=== PATIENT | male | born 1990 | race Caucasian/White ===

== ENCOUNTER 2023-08-12 23:00 | Emergency (ER) | payer BC ==
[~2023-08-12] VITALS: Ht 185.4 cm; Wt 81.6 kg
[2023-08-12 23:03] VITALS: BP_SYST 149; PULSE 74; RESP 18; TEMP 99; O2SAT 97
[2023-08-12] MEDS: FAMOTIDINE 20 MG TABLET PO ONE (23:28)
[2023-08-12] MEDS: DIPHENHYDRAMINE HCL 25 MG CAPSULE PO ONE (23:30)
[2023-08-12] MEDS ORDERED: TRIA1CAP88 PO (23:37)
[2023-08-12 23:40] VITALS: BP_SYST 145; PULSE 72; RESP 18; TEMP 98.9; O2SAT 97
== END 2023-08-12 23:40 | disposition home or self-care (01) ==
LOC: SED 23:00
DX: T78.3XXA Angioneurotic edema, initial encounter (principal); I10 Essential (primary) hypertension; E78.5 Hyperlipidemia, unspecified; Z88.2 Allergy status to sulfonamides; Z79.899 Other long term (current) drug therapy; Y99.8 Other external cause status
CPT/HCPCS: 99283